=== PATIENT | male | born 1995 | race Caucasian/White ===

== ENCOUNTER 2021-04-21 10:58 | Emergency (ER) | payer OTHER ==
[~2021-04-21] VITALS: Ht 210.8 cm; Wt 95.5 kg
[2021-04-21] MEDS ORDERED: CYCL-707 PO (13:26)
[2021-04-21] MEDS ORDERED: MEDR4PAK PO (13:26)
[2021-04-21 13:48] VITALS: BP 120/72
== END 2021-04-21 13:50 | disposition home or self-care (01) ==
LOC: M ED 10:58
DX: M51.37 Other intervertebral disc degeneration, lumbosacral region (principal); M62.830 Muscle spasm of back; F17.210 Nicotine dependence, cigarettes, uncomplicated

== ENCOUNTER 2021-07-26 11:37 | Emergency (ER) | payer OTHER ==
[~2021-07-26] VITALS: Ht 182.9 cm; Wt 99.5 kg
[2021-07-26 11:37] VITALS: BP 142/73
[~2021-07-26 11:37] MED LIST: CYCL-707 PO; MEDR4PAK PO
[2021-07-26] MEDS ORDERED: LUNE2TAB23 PO (12:57)
== END 2021-07-26 15:35 | disposition home or self-care (01) ==
LOC: M ED 11:37
DX: Z20.822 Contact with and (suspected) exposure to COVID-19 (principal); J02.9 Acute pharyngitis, unspecified; R51.9 Headache, unspecified; B34.8 Other viral infections of unspecified site

== ENCOUNTER → 2022-09-15 | Outpatient (REF) ==
[~2022-09-15] MED LIST changes: +LUNE2TAB23 PO
== END ==
LOC: M PLAIMG 14:04
PROVIDERS: ATTEND Internal Medicine
DX: Z00.00 Encounter for general adult medical examination without abnormal findings (principal)